=== PATIENT | female | born 1960 | race Caucasian/White ===

== ENCOUNTER 2021-11-09 11:31 | Inpatient (IN) | payer OTHER, SELFPAY ==
[2021-11-10] VITALS (7 sets, daily range): BP systolic 108–120; BP diastolic 62–66; PULSE 62–71; RESP 16–18; TEMP 35.9–36.6; O2SAT 92–100
--- NOTE | 2021-11-10 05:54 | PC.NURSE ---
Pt pleasant and cooperative. Abdominal dressing is CDI. some pain noted. Dilaudid 0.5mg given on a couple of different times and pt states it has worked for her pain. Up with assist of one to the bathroom without incident. She tolerated well.
[2021-11-10] MEDS: HYDROmorphone 0.5 mg/0.5 ml inj IVP ×2 (09:07→12:36)
--- NOTE | 2021-11-10 09:20 | PC.SOCIAL ---
Met with pt. and offered and [facility] [employer] [facility] Directive with instructions. Pt. plans to fill out the form at a later time. Pt. is aware she can contact social work if she has questions about the form.
--- NOTE | 2021-11-10 11:13 | P.GSPN_ITS ---
Progress Note: A&P Assessment and plan (1) History of ileostomy: Status: Acute Plan 61-year-old female s/p loop ileostomy takedown POD 1. Patient is doing well. She can have sips of clears but we will hold off on advancing her diet further until she starts to pass gas. I discussed with the patient to continue ambulating. I will decrease her fluids to 75 an hour. Subjective Subjective Interval history: Patient is doing well. Her pain is controlled with pain medication. She denies passing gas. She denies nausea vomiting. She ambulated. Exam Narrative: Exam Narrative: Abdomen: Abdomen is soft, not distended, somewhat tender to palpation on the right side of the abdomen. [place] are intact and there is dried drainage on gauze Covering the incision. Const: Vital Signs, click to edit/add: Vital Signs - 24 hr 11/10/21 08:47 Temperature 97.9 F Respiratory Rate 16 Blood Pressure [Le ft Arm] 108/63 Pulse Oximetry 99
[2021-11-10] MEDS: LACTATED RINGERS 1000 ML 1,000 ML 75 ML IV ×2 (11:24→23:52)
[2021-11-10] MEDS: HYDROCODONE-ACETAMIN 5-325 MG 1 TAB PO (15:48)
--- NOTE | 2021-11-10 19:07 | PC.NURSE ---
Pt. pleasant and cooperative, alert and oriented x3. Rated pain 8 when ambulating but a 5/6 when resting. Administered IV Dilaudid prior to dressing change. Pt. tolerated dressing change well. Dressing change is wet to dry. Up in chair frequently. Ambulated in hallway three times, twice w/staff and once independently. Still NPO but is on sips/chips and clears. Tolerated broth. Bowel sounds are active, pt. reports not passing flatus. No nausea reported. Room air. LR running. IV in Rt.
[2021-11-11] MEDS: HYDROCODONE-ACETAMIN 5-325 MG 1 TAB PO ×4 (00:23→21:00)
[2021-11-11 01:01] VITALS: BP 120/66; PULSE 71; RESP 18; O2SAT 100
[2021-11-11 04:15] VITALS: BP 124/70; PULSE 73; RESP 16; TEMP 36.6; O2SAT 96
--- NOTE | 2021-11-11 04:56 | PC.NURSE ---
Bee doing well. Up Independantly. Voiding without issues. BT+ No stool or flatus yet. Abdomin is soft but pt states it feels bloatted. Reminded her that walking is what will get the bowels working again. VSS
[2021-11-11 07:35] VITALS: BP 131/70; PULSE 73; RESP 16; TEMP 36.4; O2SAT 97
--- NOTE | 2021-11-11 08:59 | PM.GSPN ---
Progress Note: A&P Assessment and plan (1) History of ileostomy: Problem details: 61-year-old female s/p loop ileostomy takedown POD 2. Status: Acute Assessment and Plan: Will continue with sips of clears. Patient was encouraged to ambulate as much as possible. Will change her dressing today. Will DC IV fluids since she feels puffy. Waiting for return of bowel function. Subjective Subjective Interval history: Patient is doing well. She feels bloated and is not passing gas. She denies any nausea or vomiting. She is ambulating. She has urinated a lot over the last 24 hours. Exam Narrative: Exam Narrative: Abdomen is soft, not distended, tender to palpation in epigastrium and right lower quadrant. The ileostomy partially closed incision with intact barry. There is no surrounding erythema. The packing is in place with small amount of serosanguineous fluid on the gauze. Const: Vital Signs, click to edit/add: Vital Signs - 24 hr 11/10/21 11:39 11/10/21 15:48 11/10/21 15:56 Temperature 96.6 F L 97.7 F Pulse Rate [Right Pulse Oximeter] 62 66 Respiratory Rate 16 16 Blood Pressure [Le ft Arm] 108/63 Blood Pressure [Ri ght Arm] 118/62 Pulse Oximetry 92 11/10/21 16:00 11/10/21 18:11 11/10/21 20:00 Temperature 97.7 F 97.7 F 97.8 F Pulse Rate [Right Pulse Oximeter] 66 71 Respiratory Rate 16 18 Blood Pressure [Le ft Arm] Blood Pressure [Ri ght Arm] 115/66 120/66 Pulse Oximetry 98 100 11/11/21 01:01 11/11/21 04:15 11/11/21 07:35 Temperature 97.9 F 97.6 F Pulse Rate [Right Pulse Oximeter] 71 73 73 Respiratory Rate 18 16 16 Blood Pressure [Le ft Arm] Blood Pressure [Ri ght Arm] 120/66 124/70 131/70 Pulse Oximetry 100 96 97 Documenting provider has reviewed patient's vital signs: yes
[2021-11-11 12:30] VITALS: BP 117/66; PULSE 66; RESP 16; TEMP 36.9; O2SAT 97
--- NOTE | 2021-11-11 14:51 | PC.NURSE ---
Pt. ambulating in hallway independently. Tolerating sips of clear liquids. Bowel sounds hypoactive. Not passing flatus yet. Pain controlled with [place]. Wet-to-dry abdominal dressing changed per MD orders.
--- NOTE | 2021-11-11 18:29 | PC.NURSE ---
Shift Summary [id number]: Patient pleasant and cooperative. Rates pain 5-6/10 following ambulation but states its tolerable now that she is resting. Up independently, ambulates frequently in halls. Tolerating clear liquids. No c/o nausea.
[2021-11-11 19:00] VITALS: BP 136/81; PULSE 75; RESP 16; O2SAT 97
[2021-11-11 23:00] VITALS: BP 111/68; PULSE 64; RESP 16; TEMP 36.6; O2SAT 95
[2021-11-12] VITALS (8 sets, daily range): BP systolic 102–123; BP diastolic 64–99; PULSE 64–76; RESP 14–18; TEMP 36.4–36.9; O2SAT 67–98
[2021-11-12] MEDS: HYDROCODONE-ACETAMIN 5-325 MG 1 TAB PO ×5 (04:11→20:53)
--- NOTE | 2021-11-12 06:52 | PC.NURSE ---
Shift note: Surgical dressing is C/D/I, no drainage, skin is intact and pink. Pt reported to pass gas, pain controlled with PRN [place] from 11/22 to 08/23. Bowel sounds hypoactive but present
--- NOTE | 2021-11-12 15:25 | PC.NURSE ---
07-1500: Pt. up indep. in room, tolerated walks in halls x4 this shift. Increased soreness after, alleviated with one [place] approximately Q3H. Re-educated pt. on need to stay ahead of pain vs. catching up after pain becomes too high. Pt. tolerated a good amount of intake today, and had approx. 1L clear yellow urine output. Started passing gas overnight, has continued to do so this shift. Would like to advance diet. Dressing to abdomen not changed yet; waiting on Dr. Krishna to assess pt. this afternoon. Oncoming RN updated on this. Small area on dressing circled w/drainage this morning (dry). Some increase to amount of drainage noted, but pt. did not it reinforced. Area apprears dry.
--- NOTE | 2021-11-12 16:07 | PM.GSPN ---
Progress Note: A&P Assessment and plan (1) History of ileostomy: Problem details: 61-year-old female s/p loop ileostomy takedown POD 3. Patient is recovering well. We will advance her diet as tolerated. If she continues to recover well, possibly discharge home tomorrow evening. Status: Acute Subjective Subjective Interval history: Patient is doing well. She started to pass gas. Her pain is controlled with p.o. medication. She denies any nausea vomiting. She only had water throughout the day. She is ambulating. Exam Narrative: Exam Narrative: Abdomen is soft, minimally tender to palpation in epigastrium and right lower quadrant, her right lower quadrant incision with intact barry and no surrounding erythema. Her dressing was repacked. Only bloody serosanguineous fluid was noted on the dressing. Const: Vital Signs, click to edit/add: Vital Signs - 24 hr 11/11/21 19:00 11/11/21 23:00 11/12/21 03:00 Temperature 97.9 F 97.9 F Pulse Rate [Right Pulse Oximeter] 75 64 72 Respiratory Rate 16 16 16 Blood Pressure [Ri ght Arm] 136/81 111/68 122/72 Pulse Oximetry 97 95 97 11/12/21 08:07 11/12/21 08:15 11/12/21 11:00 Temperature 98.5 F 98.5 F 98.2 F Pulse Rate [Right Pulse Oximeter] 70 64 Respiratory Rate 16 14 Blood Pressure [Ri ght Arm] 123/99 H 108/68 Pulse Oximetry 97 95 Documenting provider has reviewed patient's vital signs: yes
[2021-11-12] MEDS: SODIUM CHLORIDE 0.9 % (FLUSH) 10 ML SYRINGE 5 ML IVF (20:55)
[2021-11-13] VITALS: BP 120/67; PULSE 74; RESP 18; TEMP 36.6; O2SAT 96
[2021-11-13 04:00] VITALS: BP 123/68; PULSE 82; RESP 16; TEMP 36.7; O2SAT 97
--- NOTE | 2021-11-13 06:46 | PC.NURSE ---
Shift Note [id number]: Pt pleasant and cooperative. Pt rated pain 6/10 with relief with rest and pain med at HS. Dressing to abdomen is CDI. Dressing changed by on 11/12. Pt slept well throughout the night and is passing gas. No BM noted this shift. VSS and WNL on RA; Afebrile.
[2021-11-13 08:00] VITALS: BP 116/80; PULSE 84; RESP 16; TEMP 36.7; O2SAT 95
[2021-11-13] MEDS: MULTIVITAMIN/MINERALS 1 TABLET 1 TAB PO ×2 (08:34)
[2021-11-13] MEDS: HYDROCODONE-ACETAMIN 5-325 MG 1 TAB PO (08:34)
[2021-11-13] MEDS: SODIUM CHLORIDE 0.9 % (FLUSH) 10 ML SYRINGE 5 ML IVF (08:40)
[2021-11-13 12:00] VITALS: BP 119/74; PULSE 79; RESP 16; TEMP 36.4; O2SAT 96
--- NOTE | 2021-11-13 13:02 | PM.DS1 ---
DS: Providers Provider Date of admission: 11/09/21 11:31 Primary care physician: Eun Martines MD Admitting Clinician: Francie Krishna MD Attending Physician on discharge: Francie Krishna MD DS: Diagnosis Discharge Diagnosis (1) History of ileostomy: Status: Acute DS: Summary Hospital Course Hospital Course: Patient was admitted to the hospital after she underwent an open loop ileostomy takedown. She did well over her hospital stay. Patient was diet was advanced to regular. Patient's right lower quadrant wound was only partially Closed and she was undergoing dressing changes with Nu Gauze. Time Spent with Patient Time attestation: Total time spent providing and/or coordinating discharge services: Exam Narrative: Exam Narrative: abdomen is soft, not distended, minimally tender to palpation in the right lower quadrant and epigastrium. The right lower quadrant wound with no erythema and with intact barry. Minimal amount of serosanguineous drainage was noted on the gauze. The wound was repacked today. Const: Vital Signs, click to edit/add: Vital Signs - 24 hr 11/12/21 16:00 11/12/21 19:23 11/12/21 20:53 Temperature 97.5 F L 98.2 F 98.2 F Pulse Rate [Right Pulse Oximeter] 76 67 Respiratory Rate 18 16 Blood Pressure [Ri ght Arm] 117/64 102/65 Pulse Oximetry 98 67 L 11/12/21 23:00 11/13/21 00:00 11/13/21 04:00 Temperature 97.8 F 98.0 F Pulse Rate [Right Pulse Oximeter] 74 74 82 Respiratory Rate 16 18 16 Blood Pressure [Ri ght Arm] 120/67 123/68 Pulse Oximetry 96 97 Discharge Plan Discharge Disposition: Home, Self-Care Date of Admission: 11/09/21 11:31 Attending Provider on Discharge: Francie Krishna Primary Care Provider: Eun Martines Condition: Stable Anticipated Discharge Date/Time: 11/13/21 18:36 Discharge Medications: New hydrocodone-acetaminophen 5-325 mg tablet 1 tab PO Q6H PRN (Reason: pain) Qty: 25 0RF Continued atorvastatin 40 mg tablet 40 mg PO QPM 0RF ibuprofen 200 mg tablet 200 mg PO Q6H PRN0RF multivitamin Tablet 1 tab PO DAILY 0RF No Action cholecalciferol (vitamin D3) [Vitamin D3] 25 mcg (1,000 unit) capsule 25 mcg PO DAILY 0RF Discharge Orders: Discharge Order (Routine); Ordered 11/13/21 Ordered By: Francie Krishna Patient Education: Acute Wounds (DC) Activity Level: No strenuous activity Activity Detail: no lifting more than 15 lbs for 6 weeks Discharge Diet: Regular Referrals: Nurse, Visit [Other] - 11/17/21 2:30 pm (Nurse visit November 17, , , and at 2:30pm) Francie Krishna MD [Staff Physician] - 11/25/21 11:00 am Forms: My[facility] Info Instructions Discharge Comment: wound care - daily wet to dry dressing changes
--- NOTE | 2021-11-13 13:11 | PM.DS1 ---
DS: Providers Provider Date of admission: 11/09/21 11:31 Primary care physician: Eun Martines MD Admitting Clinician: Francie Krishna MD Attending Physician on discharge: Francie Krisnha MD DS: Diagnosis Discharge Diagnosis (1) History of ileostomy: Status: Acute DS: Summary Hospital Course Hospital Course: Patient was admitted to the hospital after she underwent an open loop ileostomy takedown. She did well over her hospital stay. Patient was diet was advanced to regular. Patient's right lower quadrant wound was only partially Closed and she was undergoing dressing changes with Nu Gauze. Time Spent with Patient Time attestation: Total time spent providing and/or coordinating discharge services: Exam Narrative: Exam Narrative: Abdomen is soft, not distended, minimally tender to palpation in the right lower quadrant. Her right lower quadrant wound is packed with Nu Gauze. [place] are intact. There is no surrounding erythema. Const: Vital Signs, click to edit/add: Vital Signs - 24 hr 11/12/21 16:00 11/12/21 19:23 11/12/21 20:53 Temperature 97.5 F L 98.2 F 98.2 F Pulse Rate [Right Pulse Oximeter] 76 67 Respiratory Rate 18 16 Blood Pressure [Ri ght Arm] 117/64 102/65 Pulse Oximetry 98 67 L 11/12/21 23:00 11/13/21 00:00 11/13/21 04:00 Temperature 97.8 F 98.0 F Pulse Rate [Right Pulse Oximeter] 74 74 82 Respiratory Rate 16 18 16 Blood Pressure [Ri ght Arm] 120/67 123/68 Pulse Oximetry 96 97 Discharge Plan Discharge Disposition: Home, Self-Care Date of Admission: 11/09/21 11:31 Attending Provider on Discharge: Francie Krishna Primary Care Provider: Eun Martines Condition: Stable Anticipated Discharge Date/Time: 11/13/21 18:36 Discharge Medications: New hydrocodone-acetaminophen 5-325 mg tablet 1 tab PO Q6H PRN (Reason: pain) Qty: 25 0RF Continued atorvastatin 40 mg tablet 40 mg PO QPM 0RF ibuprofen 200 mg tablet 200 mg PO Q6H PRN0RF multivitamin Tablet 1 tab PO DAILY 0RF No Action cholecalciferol (vitamin D3) [Vitamin D3] 25 mcg (1,000 unit) capsule 25 mcg PO DAILY 0RF Discharge Orders: Discharge Order (Routine); Ordered 11/13/21 Ordered By: Francie Krishna Patient Education: Acute Wounds (DC) Activity Level: No strenuous activity Activity Detail: no lifting more than 15 lbs for 6 weeks Discharge Diet: Regular Follow Up Appointments: Nurse, Visit [Other] - 11/17/21 2:30 pm (Nurse visit November 17, , , and at 2:30pm) Francie Krishna MD [Staff Physician] - 11/25/21 11:00 am Forms: MyHealth Info Instructions Discharge Comment: wound care - daily wet to dry dressing changes
[2021-11-13 15:00] VITALS: PULSE 79; RESP 16
--- NOTE | 2021-11-13 15:38 | PC.NURSE ---
VSS AND AFEBRILE. AT BEGINNING OF SHIFT PATIENT WAS REPORTING INCREASED GAS PAIN. PAIN MEDS ADMINISTERED AND ENCOURAGED PATIENT TO AMBULATE. AFTER BREAKFAST, PATIENT WAS ABLE TO HAVE LOOSE BM AND PATIENT REPORTED PAIN HAD RESOLVED. PATIENT AMBULATING FREQUENTLY IN HALLWAY. PATIENT'S DIET ADVANCED TO REGULAR THROUGHOUT THE DAY AND PATIENT HAS TOLERATED WELL WITH NO C/O N/V. PATIENT'S PLAN IS TO DC THIS EVENING AFTER SUPPER.
--- NOTE | 2021-11-13 21:23 | PC.NURSE ---
Pt. up independent in room, tolerating advanced diet and activity well. Dressing C/D/I. Pain well controlled. Pt. voiding and had BM this shift. All D/C paperwork reviewed and signed, returned signed papers to chart. IV removed w/tip intact. Pt. had son pick her up at hospital entrance. Left the unit around 1830 w/belongings.
== END 2021-11-13 18:29 | disposition home or self-care (01) | DRG 331 ==
PROVIDERS: Admitting Provider Surgery; PCP Family Medicine; Visit Provider Surgery
DX: Z43.2 Encounter for attention to ileostomy (principal); K43.5 Parastomal hernia without obstruction or gangrene; K66.0 Peritoneal adhesions (postprocedural) (postinfection)
CPT/HCPCS: A9153; A9270; J0690; J1100; J1170; J1335; J2250; J2405; J2704; J2710; J3010; J3490; J7120

== ENCOUNTER 2021-11-16 10:32 | Outpatient (RCR) | payer OTHER, SELFPAY ==
--- NOTE | 2021-11-16 11:07 | PC.NURSE ---
Pt VS= b/p133/83, T97.5,RR20, 96% RA., HR73. She reports the pain is an occ. sharpness, and took pain Meds prior to Drsg change. Change drsg to stoma take down, the drainage is small amount on 3 4x4 and serous and clear, no redness noted to skin surrounding wound. Wound bed is bright red, moist, shiny, edges rolled under and barry intact, no puss or odor noted. She needs about 9in of 1/2 in nugaze into tunneling wound 2cm deep direction is slightly medial towards umbilicals. Then covered with 3 4x4 and an ABD, taped well as pt requested.
== END 2021-11-16 23:59 | disposition home or self-care (01) ==
LOC: MS OUT 10:32
PROVIDERS: PCP Family Medicine; Visit Provider Surgery
DX: Z48.01 Encounter for change or removal of surgical wound dressing (principal); Z98.890 Other specified postprocedural states
CPT/HCPCS: 99211

== ENCOUNTER 2022-11-15 10:46 | Emergency (ER) | payer OTHER, SELFPAY ==
[2022-11-15 11:01] VITALS: BP 125/89; PULSE 84; RESP 16; TEMP 36.6; O2SAT 95; BMI 38.1
--- NOTE | 2022-11-15 11:23 | CRLHL7_ITS ---
For Patients: As a result of the Cures Act, medical imaging exams and procedure reports are released immediately into your electronic medical record. You may view this report before your referring provider. If you have questions, please contact your health care provider. Indication: painful bulging area in RLQ, s/p ileostomy takedown 1 year ago, ? seroma vs. hernia Technique: Grayscale ultrasound exam of the right lower quadrant soft tissues performed. Comparison: CT 10/16/2021 Findings: Sonographic evaluation of the right lower quadrant abdominal wall performed with and without Valsalva maneuver. There appears to be hernia defect present on the cine clips. No fluid collection or abscess. No seroma. Impression: Sonographic findings are suggestive of a hernia within the right lower quadrant abdominal wall. Dictated by Frankie Matthews MD @ 11/15/2022 12:38:30 PM (Electronically Signed)
--- NOTE | 2022-11-15 11:24 | ED_ITS ---
HPI - General Adult General Chief complaint: Unspecified Complaint, Adult Stated complaint: abdominal protrusion Time Seen by Provider: 11/15/22 11:15 History of Present Illness HPI narrative: This 62-year-old female comes in reporting a bulge in her right upper abdomen that seems to be more prominent when upright. She did have an ileostomy take down about a week ago and states that she has been doing well. She does not report any nausea, vomiting, diarrhea, or fever. She states that she feels uncomfortable in this area. Related Data Home Medications Medication Instructions Recorded Confirmed atorvastatin 40 mg tablet 40 mg PO QPM 11/10/21 11/10/21 multivitamin 1 tab PO DAILY 11/10/21 11/10/21 cholecalciferol (vitamin D3) 25 25 mcg PO DAILY 11/13/21 11/25/21 mcg (1,000 unit) capsule (Vitamin D3) Allergies Allergy/AdvReac Type Severity Reaction Status Date / Time No Known Allergies Allergy Unknown Verified 11/25/21 11:04 Review of Systems Status of ROS: Reports: 10 or more systems reviewed and unremarkable except as noted in History and below Narrative: Constitutional: No fevers, no weight gain or loss. Eyes: No discharge. No vision changes. HENT: No congestion, no sore throat, no ear pain. Cardiovascular: No chest pain, no palpitations. Respiratory: No shortness of breath, no wheezes, no cough. Gastrointestinal: No vomiting, no diarrhea. Patient reports a bulge that is more prominent when upright and located in the right upper abdomen. Genitourinary: No dysuria, no hematuria. Musculoskeletal: Normal range of motion. Skin: No rashes, no pruritis. Neurological: No dizziness, weakness, sensory change, speech change. Endo/Heme/Allergies: No bruising or bleeding. No polydipsia. Pysch: no suicidality, no anxiety, no insomnia. All other systems reviewed and are negative. [facility] Medical History (Updated 11/15/22 @ 12:42 by Girish Dumont MD) History of open sigmoidectomy ?Z98.890 - Other specified postprocedural states (ICD-10) ?Z90.49 - Acquired absence of other specified parts of digestive tract (ICD- 10) Surgical History (Updated 11/25/21 @ 11:09 by Francie Krishna MD) Status post reversal of ileostomy ?Z98.890 - Other specified postprocedural states (ICD-10) History of ileostomy ?Z98.890 - Other specified postprocedural states (ICD-10) Social History Smoking Status: Never smoker Do you use any of these nicotine containing products: None Non-prescribed substance use: denies use Exam Narrative: Exam Narrative: Constitutional: Well-developed, well-nourished, no acute distress. HEENT: Normocephalic, atraumatic. Neck: Normal range of motion. Nontender. Supple. Heart: Regular. No murmurs. Normal rate. Intact distal pulses. Lungs: Clear to auscultation. No chest discomfort. No wheezes, rhonchi, or rales. Abdomen: Normal bowel sounds. Mild tenderness. No rebound tenderness. The patient points to an area where she notices some bulging. This is minimally present currently on my exam. Genitalia: Deferred. Back: No midline tenderness. Normal range of motion. Extremities: Normal range of motion. No injury. Skin: Intact. No rash. Warm. No erythema or pallor. Neurologic: No altered sensation. No weakness. Alert and oriented. Psychiatric: No suicidality. No anxiety or depression. No insomnia. Nursing notes and vitals signs are reviewed. Const: Vital Signs, click to edit/add: Vital Signs - 24 hr 11/15/22 11:01 Temperature 97.9 F Pulse Rate [Right Pulse Oximeter] 84 Respiratory Rate 16 Blood Pressure [Ri ght Upper Arm] 125/89 Pulse Oximetry 95 Oxygen Delivery Me thod Room Air Course Vital Signs Vital signs: Initial Vital Signs Temperature 97.9 F 11/15/22 11:01 Temperature Source Temporal Artery Scan 11/15/22 11:01 Pulse Rate 84 11/15/22 11:01 Pulse Rhythm Regular 11/15/22 11:01 Respiratory Rate 16 11/15/22 11:01 Blood Pressure 125/89 11/15/22 11:01 Blood Pressure Mean 101 11/15/22 11:01 Blood Pressure Position Sitting 11/15/22 11:01 Pulse Oximetry 95 11/15/22 11:01 Oxygen Delivery Method Room Air 11/15/22 11:01 Vital Signs Temperature 97.9 F 11/15/22 11:01 Pulse Rate 84 11/15/22 11:01 Respiratory Rate 16 11/15/22 11:01 Blood Pressure 125/89 11/15/22 11:01 Pulse Oximetry 95 11/15/22 11:01 Oxygen Delivery Method Room Air 11/15/22 11:01 Temperature 97.9 F 11/15/22 11:01 Pulse Rate 84 11/15/22 11:01 Respiratory Rate 16 11/15/22 11:01 Blood Pressure 125/89 11/15/22 11:01 Pulse Oximetry 95 11/15/22 11:01 Oxygen Delivery Method Room Air 11/15/22 11:01 Medical Decision Making MDM Narrative Medical decision making narrative: This patient comes in with a bulge in her right abdomen that is more prominent when upright or when bearing down. She did have an ileostomy take down recently. She appears to have developed a hernia. She is not in much discomfort and there is no physical sign of strangulation. CT imaging is not possible today as the machine is in repair. An ultrasound is acquired and does show evidence of a hernia. The surgeon on-call was nearby and also did stop by to take a look at her. The patient received an abdominal binder and is encouraged to follow-up with her general surgeon for ongoing management. Discharge Plan Discharge Clinical Impression: Abdominal hernia Patient Disposition: Home, Self-Care Condition: Stable Additional Instructions: Wear abdominal binder as needed. Follow-up with surgery Clinic for ongoing management. Return if worsening. Prescriptions: No Action atorvastatin 40 mg tablet 40 mg PO QPM multivitamin Tablet 1 tab PO DAILY cholecalciferol (vitamin D3) [Vitamin D3] 25 mcg (1,000 unit) capsule 25 mcg PO DAILY Follow Up/Referrals: Eun Martines MD [Primary Care Provider] - Stand Alone [facility]
--- NOTE | 2022-11-15 11:55 | P.GSCN_ITS ---
History of Present Illness Consult details Date Seen: 11/15/22 Consult date: 11/15/22 Narrative: The patient is a 61-year-old female who presents to the ER with a right-sided abdominal bulge. Her history is that she underwent sigmoidectomy for perforated diverticulitis as well as diverting loop ileostomy. She underwent loop ileostomy takedown and repair peristomal hernia on 11/13/2021. No mesh was used. She states that about a week ago she had a GI illness were she had significant diarrhea. She noticed a lump on her right abdomen. There is a bulge there. This goes away when she lays down. It is more prominent when she standing. She feels gassy and bloated after she eats. No vomiting. The area is uncomfortable however not painful. [facility] Medical History (Updated 11/15/22 @ 12:42 by Girish Dumont MD) History of open sigmoidectomy ?Z98.890 - Other specified postprocedural states (ICD-10) ?Z90.49 - Acquired absence of other specified parts of digestive tract (ICD- 10) Surgical History (Updated 11/25/21 @ 11:09 by Francie Krishna MD) Status post reversal of ileostomy ?Z98.890 - Other specified postprocedural states (ICD-10) History of ileostomy ?Z98.890 - Other specified postprocedural states (ICD-10) Social History Smoking Status: Never smoker Do you use any of these nicotine containing products: None Non-prescribed substance use: denies use Meds Home Medications and Allergies Home Medications Medication Instructions Recorded Confirmed Type atorvastatin 40 mg tablet 40 mg PO QPM 11/10/21 11/10/21 History multivitamin 1 tab PO DAILY 11/10/21 11/10/21 History cholecalciferol (vitamin D3) 25 25 mcg PO DAILY 11/13/21 11/25/21 History mcg (1,000 unit) capsule (Vitamin D3) Allergies Allergy/AdvReac Type Severity Reaction Status Date / Time No Known Allergies Allergy Unknown Verified 11/25/21 11:04 Exam Narrative: Exam Narrative: General: No acute distress Abdomen: Obese. Scars consistent with surgical history. When she stands there is an asymmetry between her right and left abdominal wall, this likely represents a palpable hernia. When she lays down, this reduces. I am unable to palpate a fascial defect. Const: Vital Signs, click to edit/add: Vital Signs - 24 hr 11/15/22 11:01 Temperature 97.9 F Pulse Rate [Right Pulse Oximeter] 84 Respiratory Rate 16 Blood Pressure [Ri ght Upper Arm] 125/89 Pulse Oximetry 95 Oxygen Delivery Me thod Room Air Results Labs Labs: All other labs normal. Imaging Abdominal ultrasound report/results: report reviewed and image reviewed Additional studies: Ultrasound performed today at [facility] which shows likely abdominal wall hernia. Assessment and Plan Assessment and plan (1) Abdominal hernia: Status: Acute (2) Status post reversal of ileostomy: Status: Acute Plan The patient is a 62-year-old female who presents to the emergency department with likely abdominal hernia at her ileostomy site. She and I discussed hernias. I told her signs and symptoms of incarceration or strangulation that she should watch for. Otherwise as long as it reduces at night there is no need to have this repaired urgently. I recommend that she follow-up with Dr. Krishna. Likely a CT scan would be obtained, however unfortunately our CT scan today is currently being repaired. I told her that she can try wearing an abdominal binder she feels that she needs abdominal support. She should tries small frequent meals when eating if she feels as though the hernia becomes gas year more distended after eating. As long as she is able to reduce it when she lays down, she can follow up with Dr. Krishna at her convenience.
[2022-11-15 12:49] VITALS: BP 120/78; PULSE 78; RESP 18; TEMP 36.3; O2SAT 96
== END 2022-11-15 12:51 | disposition home or self-care (01) ==
PROVIDERS: Emergency Provider Emergency Medicine Emergency Medical Services; PCP Family Medicine
DX: K46.9 Unspecified abdominal hernia without obstruction or gangrene (principal)
CPT/HCPCS: 76705; 99283; 99284

== ENCOUNTER 2022-12-29 10:06 | Outpatient (CLI) | payer OTHER, SELFPAY ==
[2022-12-29 10:47] LABS: Creatinine* 0.9 mg/dL (0.5-1.5); Estimated Glomerular Filt Rate 73 ml/min
--- NOTE | 2022-12-29 14:00 | CRLHL7_ITS ---
For Patients: As a result of the Century Cures Act, medical imaging exams and procedure reports are released immediately into your electronic medical record. You may view this report before your referring provider. If you have questions, please contact your health care provider. Indication: Right lower quadrant incisional hernia Technique: Postcontrast CT abdomen and pelvis. 105 cc Isovue 370 intravenous contrast. Please note that all CT scans at this facility use dose modulation, iterative reconstruction, and/or weight-based dosing when appropriate to reduce radiation dose to as low as reasonably achievable. Comparison: 10/16/2021 Findings: Calcification associated with the left lung base is again noted. No pleural effusion. Calcified splenic granulomas are present. No intrahepatic mass. Low-density cholesterol stones in the gallbladder lumen. Gallbladder wall appears similar. Adrenal glands and kidneys are normal. Normal pancreas. No hiatal hernia. Bladder is normal. Mild diverticulosis. No diverticulitis. No bowel obstruction or free air. No free fluid or abscess. Postop changes to the right lower quadrant bowel. There is a hernia defect along the lateral aspect of the abdominal wall with the defect measuring up to 5.4 cm. This hernia has multi lobulated and contains fat. The hernia itself measures up to approximately 9 cm. No bowel involvement. Mild degenerative anterolisthesis of L4 on L5. No compression fracture. Midline abdominal wall incision noted with focal weakening of the supraumbilical abdominal wall. Impression: Right lower quadrant abdominal wall hernia containing fat. The hernia measures up to 9 cm. No inflammatory changes are bowel involvement. Chronic cholelithiasis. Please note that all CT scans at this facility use dose modulation, iterative reconstruction, and/or weight-based dosing when appropriate to reduce radiation dose to as low as reasonably achievable. Dictated by Frankie Matthews MD @ 12/29/2022 1:54:32 PM (Electronically Signed)
== END 2022-12-29 10:07 | disposition home or self-care (01) ==
LOC: CT 10:07
PROVIDERS: PCP Family Medicine; Visit Provider Surgery
DX: K46.9 Unspecified abdominal hernia without obstruction or gangrene (principal); K80.20 Calculus of gallbladder without cholecystitis without obstruction
CPT/HCPCS: 36415; 74177; 82565; Q9967

== ENCOUNTER 2023-01-03 06:15 | Day surgery (SDC) | payer OTHER, SELFPAY ==
[2023-01-03] VITALS (16 sets, daily range): BP systolic 108–143; BP diastolic 71–98; PULSE 76–90; RESP 14–16; TEMP 36.2–36.4; O2SAT 95–100; BMI 38.0
[2023-01-03] MEDS: LACTATED RINGERS 1000 ML 1,000 ML 100 ML IV (07:10)
[2023-01-03] MEDS: SODIUM CHLORIDE 0.9 % (FLUSH) 10 ML SYRINGE IVF (07:10)
[2023-01-03] MEDS: CEFAZOLIN 2 GM INJ IVP (07:48)
[2023-01-03] MEDS: BUPIVACAINE 0.25% 30 ML INJECTION (09:50)
[2023-01-03] MEDS: BUPIVACAINE LIPOSOME 133 MG/10 ML INJ INFILTRATI (09:50)
--- NOTE | 2023-01-03 10:43 | P.GSOP_ITS ---
Operative Note Pre-op diagnosis: 1. Right lower abdominal wall incisional hernia. Post-op diagnosis: Same Type of Procedure: 1. Open right lower quadrant incisional hernia repair with mesh. Indications: 62-year-old female was seen in clinic for the right lower quadrant abdominal bulge. Patient underwent sigmoidectomy with diverting loop ileostomy more than 1 year ago for perforated diverticulitis. Her ileostomy was taken down in November of 2021 and patient had a repair of parastomal hernia at that time without mesh. Patient states that over 1 month ago she noticed a large bulge in her right lower quadrant abdominal wall at the site of her ileostomy incision. She did not feel well and came into the emergency room. She felt bloated and was not passing gas. Patient had an ultrasound because the CT scanner was down and that showed an incisional hernia. Patient stated that her bulge was noticeable with strenuous activity and overeating. On clinical exam there was a well-healed midline laparotomy incision and right lower quadrant ileostomy incision. Just lateral to this ileostomy incision I was able to palpate fascial defect. With the patient standing up, I did feel a bulge, however it was difficult to define what the size of the bulge was. A preoperative abdominal CT scan was obtained and that showed a right lower quadrant incisional hernia the fascial defect of a t least 6 cm. Fat was incarcerated in the hernia defect. Given patient's symptoms and her CT scan findings, an open incisional hernia repair with mesh was recommended. The procedure was discussed in detail. Risks associated with the procedure including infection, bleeding, injury to intra-abdominal organs, and hernia recurrence were all discussed with the patient, and she agreed to proceed. Procedure Description: After discussing the risks and benefits of the procedure, the patient signed informed consent.? The operative site was marked and the patient was brought to the operating room and placed on the operating table in supine position.? Care was taken to pad the patient's pressure points.?? The patient was then intubated by anesthesia.?? The operative site was then prepped and draped in the usual sterile fashion.? A time-out was then performed. A horizontal surgical incision was made through a previously well-healed scar in the right lower quadrant. Subcutaneous fat was divided with cautery. At first it was difficult to identify the hernia sac because of abundance of fat in subcutaneous layers and scar tissue from previous ileostomy. Once the hernia sac was identified, it was dissected off subcutaneous fat. The hernia sac was entered superiorly and omentum was adherent to the hernia sac. Those adhesions were taken down with Metzenbaum scissors. The hernia sac was multilobulated. The hernia sac was then dissected off the anterior fascia and a retro fascial space was developed with cautery. A lot of scar tissue was noted medially. Superiorly, the anterior fascia was very thin. When the retro rectus space was developed, the hernia sac was then excised, and peritoneum was closed with a running Vicryl suture. Hemostasis was achieved with cautery. The fascial defect was approximately 8 x 6 cm. I used Ventrio ST 11 x 14 cm mesh for repair. The mesh was placed into the retro fascial plane. Transfascial sutures were placed medially and laterally with interrupted 0-0 Nurolon sutures. Exparel mixed with Marcaine was injected into the anterior fascia. The anterior fascia was then closed with interrupted [id number] 0-0 Vicryl and 0-0 Prolene sutures. Superiorly, where the anterior fascia was very thin the mesh was not covered by the anterior fascia. I extended my dissection superiorly to be able to cover the mesh with anterior fascial layer. This was done with interrupted Vicryl sutures. There was some mild tension on this closure. Fifteen Nabor drain was then placed into the subcutaneous fat through a separate stab skin incision in the right lower quadrant. The drain was secured to the skin with nylon suture. Subcutaneous space was then irrigated with normal saline. The incision was then closed in layers with interrupted Vicryl sutures. The dermis was reapproximated with interrupted 3-0 Vicryl sutures. The skin was closed with a running 4-0 Monocryl stitch. Steri-Strips and sterile dressings were placed over the incision. The drain sponge was placed under the drain. ? The patient was then woken and transported to the recovery area in stable condition. ? The patient tolerated the procedure well. Findings: Omentum incarcerated in the hernia sac. This was reduced. The hernia was repaired with 11 x 14 mesh. Implants: Mesh Anesthesia: GETA Surgeon: Francie Krishna MD Estimated blood loss (mL): 30 Condition: stable Disposition: PACU
--- NOTE | 2023-01-03 11:10 | W.ANESCHARGE ---
Anesthesia Charges Start Date/Time Anesthesia Start Date: 01/03/23 Anesthesia Start Time: 07:34 Stop Date/Time Anesthesia Stop Date: 01/03/23 Anesthesia Stop Time: 11:04
--- NOTE | 2023-01-03 11:12 | W.ANESCHARGE ---
Anesthesia Charges Start Date/Time Anesthesia Start Date: 01/03/23 Anesthesia Start Time: 07:34 Stop Date/Time Anesthesia Stop Date: 01/03/23 Anesthesia Stop Time: 11:04
[2023-01-03] MEDS: fentaNYL 100 MCG/2 ML inj 50 MCG IVP ×2 (11:29→11:41)
--- NOTE | 2023-01-03 11:36 | PC.NURSE ---
Pt states that left eye is sore and scratchy, appears to be red, applied warm compress and flushed with normal saline. Update given to Dr. Krishna
[2023-01-03] MEDS: HYDROCODONE-ACETAMIN 5-325 MG 1 TAB PO (12:16)
== END 2023-01-03 13:50 | disposition home or self-care (01) ==
PROVIDERS: PCP Family Medicine; Visit Provider Surgery
PROC: (CPT 49595; principal; 2023-01-03 07:30)
DX: K43.2 Incisional hernia without obstruction or gangrene (principal)
CPT/HCPCS: 49595; 00752; A4467; A9270; C1781; C9290; J0330; J0665; J0690; J1100; J2250; J2371; J2405; J2704; J3010; J7120